=== PATIENT | male | born 2000 | race Caucasian/White ===

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

== ENCOUNTER 2022-11-03 16:05 | Emergency (ER) | payer OTHER ==
[~2022-11-03] VITALS: Ht 170.2 cm; Wt 77.1 kg
[~2022-11-03 16:05] MED LIST: LOTC TP; NAPR-54 PO
[2022-11-03 16:12] VITALS: BP 109/71
--- NOTE | 2022-11-03 16:17 | NUR ---
PT AMB TO BED 7
[2022-11-03] MEDS ORDERED: IBUP-2213 PO (16:24)
[2022-11-03] MEDS ORDERED: IBUPROFEN 600 MG TAB PO ONE (16:25)
[2022-11-03 16:46] VITALS: BP 109/71
--- NOTE | 2022-11-03 16:47 | NUR ---
Patient discharged with v/s stable. Written and verbal after care instructions given and explained. Patient verbalized understanding. Ambulatory with steady gait. All questions addressed prior to discharge. Advised to follow up with PMD.
== END 2022-11-03 16:47 | disposition home or self-care (01) ==
LOC: MED 16:05
DX: S39.012A Strain of muscle, fascia and tendon of lower back, initial encounter (principal); J45.909 Unspecified asthma, uncomplicated; Z79.899 Other long term (current) drug therapy; V49.88XA Car occupant (driver) (passenger) injured in other specified transport accidents, initial encounter; Y93.89 Activity, other specified; Y92.89 Other specified places as the place of occurrence of the external cause; Y99.8 Other external cause status
CPT/HCPCS: 99282

== ENCOUNTER 2024-05-21 17:24 | Emergency (ER) | payer OTHER ==
[~2024-05-21] VITALS: Ht 172.7 cm; Wt 75.7 kg
[~2024-05-21 17:24] MED LIST changes: +IBUP-2213 PO; +NAPR-337 PO; -NAPR-54 PO
[2024-05-21 17:48] VITALS: BP 128/68; PULSE 92; RESP 18; TEMP 98.8; O2SAT 99
[2024-05-21] MEDS: ONDANSETRON 4 MG/2 ML VIAL IVP ONE (18:14)
[2024-05-21] MEDS: NACL 0.9% 1,000 ML IV ONE (18:14)
[2024-05-21 19:06] LABS: BASOPHILS % (AUTO) 0.1 % (0.0-2.0); HEMATOCRIT 40.2 % (36-52); HEMOGLOBIN 13.8 g/dL (12.0-18.0); LYMPHOCYTES # (AUTO) 0.5 K/uL (2.0-11.5); LYMPHOCYTES % (AUTO) 5.4 % (20.5-51.1); MEAN CORPUSCULAR HEMOGLOBIN 31 pg (27-31); MEAN CORPUSCULAR HGB CONC 34 g/dL (33-37); MEAN CORPUSCULAR VOLUME 89.1 fL (80-94); MONOCYTES # (AUTO) 0.6 K/uL (0.8-1.0); MONOCYTES % (AUTO) 6.5 % (1.7-9.3); NEUTROPHILS # (AUTO) 7.9 K/uL (1.8-7.7); PLATELET COUNT (AUTO) 113 K/uL (140-450); RED BLOOD CELL COUNT(AUTO) 4.51 MIL/uL (4.20-6.10); RED CELL DISTRIBUTION WIDTH 12.9 % (11.6-13.7)
[2024-05-21 19:21] LABS: ALBUMIN 3.6 g/dL (3.4-5.0); ANION GAP 10.7 (8-16); CALCIUM 7.9 mg/dL (8.5-10.1); CARBON DIOXIDE 27.7 mmol/L (21-32); CREATININE 1.4 mg/dL (0.6-1.3); POTASSIUM 3.4 mmol/L (3.5-5.1); TOTAL BILIRUBIN 1.7 mg/dL (0.0-1.0); TOTAL PROTEIN, SERUM 6.6 g/dL (6.4-8.2)
[2024-05-21 19:22] LABS: FLU A ANTIGEN negative (NEGATIVE); FLU B ANTIGEN NEGATIVE (NEGATIVE)
[2024-05-21] MEDS ORDERED: ONDA-188 SL (20:06)
[2024-05-21] MEDS: METOCLOPRAMIDE 10 MG/2 ML INJ VIAL IVP ONE (20:45)
[2024-05-21] MEDS: ACETAMINOPHEN EXTRA STRENGTH 500 MG TAB PO ONE (20:50)
[2024-05-21 21:59] VITALS: BP 128/68; PULSE 92; RESP 18; TEMP 99; O2SAT 99
== END 2024-05-21 21:59 | disposition home or self-care (01) ==
LOC: MED 17:24
DX: R11.2 Nausea with vomiting, unspecified (principal); R19.7 Diarrhea, unspecified; R50.9 Fever, unspecified; Z20.822 Contact with and (suspected) exposure to COVID-19; M79.18 Myalgia, other site; R10.9 Unspecified abdominal pain; J45.909 Unspecified asthma, uncomplicated; Z79.899 Other long term (current) drug therapy; Z88.2 Allergy status to sulfonamides; Z88.1 Allergy status to other antibiotic agents
CPT/HCPCS: 36415; 80053; 83690; 85025; 87426; 87804; 96361; 96374; 96375; 99284; J2405; J2765; J7030